=== PATIENT | male | born 1955 | race Caucasian/White ===

== ENCOUNTER 2017-02-21 07:32 | Emergency (ER) | payer BC ==
--- NOTE | 2017-02-21 08:43 | RAD ---
LEFT RIBS WITH PA CHEST: Four views obtained. HISTORY: The patient fell with injury to left chest. FINDINGS: No definite rib fracture identified. The lungs appear clear. IMPRESSION: No rib fracture identified. POS: [facility]
== END 2017-02-21 08:48 | disposition home or self-care (01) ==
LOC: NAV ERS 07:32
DX: S30.1XXA Contusion of abdominal wall, initial encounter (principal); S20.212A Contusion of left front wall of thorax, initial encounter; I10 Essential (primary) hypertension; F17.210 Nicotine dependence, cigarettes, uncomplicated; Z79.899 Other long term (current) drug therapy; W19.XXXA Unspecified fall, initial encounter

== ENCOUNTER 2017-10-11 12:47 | Outpatient (CLI) | payer BC ==
[2017-10-11 14:05] LABS: Bilirubin Small (Negative); Blood, Urine Trace (Negative); Clarity Clear (Clear); Glucose, Urine (Dipstick) Negative (Negative); Leukocyte Negative (Negative); Nitrite Negative (Negative); Protein, Urine (Dipstick) 30 mg/dL (Neg-Trace); Specific Gravity, Urine 1.025 (1.005-1.030); pH, Urine 5.5 (5.0-9.0)
[2017-10-11 14:06] LABS: Bacteria/HPF Rare-Few HPF (None Seen); Hyaline Casts/LPF 4-6 HYALINE CAST LPF (0-3 Hyaline); Squamous Epithelial 0-3 HPF (0-3)
[2017-10-11 14:08] LABS: #Basophils 0.2 thou/uL (0.0-0.2); #Eosinphils 0.7 thou/uL (0.0-0.7); #Monocytes 1.1 thou/uL (0.11-0.59); #Neutrophils 8.2 thou/uL (1.40-6.50); %Basophils 1.7 % (0.0-1.0); %Eosinophils 5.5 % (0.0-10.0); %Lymphocytes 22.3 % (21.0-51.0); %Monocytes 8.5 % (0.0-10.0); %Neutrophils 61.9 % (42.0-75.0); Mean Corpuscular HGB CONC 33.7 g/dL (32.0-36.0); Mean Corpuscular Hemoglobin 29.6 pg (27.0-31.0); Mean Corpuscular Volume 87.9 fl (80.0-94.0); Mean Platelet Volume 10.2 fL (7.4-10.4); Platelet Count 270 thou/uL (130-400); RBC Distribution Width 13.4 % (11.5-14.5); Red Blood Cell (RBC) Count 4.39 mill/uL (4.70-6.10); White Blood Cell (WBC) Count 13.3 thou/uL (4.8-10.8)
== END 2017-10-11 12:48 | disposition home or self-care (01) ==
LOC: NAV LAB 12:47
PROVIDERS: ATTEND Family Medicine
DX: J40 Bronchitis, not specified as acute or chronic (principal); J06.9 Acute upper respiratory infection, unspecified; R69 Illness, unspecified
CPT/HCPCS: 36415; 81001; 85025

== ENCOUNTER 2021-02-09 11:41 | Outpatient (CLI) | payer MEDICARE | END 2021-02-09 11:42 | disposition home or self-care (01) | LOC: NAV RAD 11:41 | PROVIDERS: ATTEND Family Medicine | DX: M19.012 Primary osteoarthritis, left shoulder (principal); R25.2 Cramp and spasm; M47.816 Spondylosis without myelopathy or radiculopathy, lumbar region | CPT/HCPCS: 72100 ==